=== PATIENT | female | born 2000 | race Caucasian/White ===

== ENCOUNTER 2024-01-12 21:43 | Day surgery (SDC) | payer SELFPAY ==
[2024-01-12] MEDS ORDERED: hydrALAZINE 20 MG/ML VIAL SLOW IVP PRN (22:18)
[2024-01-12 23:12] VITALS: BMI 31.3
== END 2024-01-13 02:20 | disposition home or self-care (01) ==
LOC: CSHERS 21:43 → CSHLD/OP 21:57
PROVIDERS: ATTEND Obstetrics & Gynecology
DX: O9A.213 Injury, poisoning and certain other consequences of external causes complicating pregnancy, third trimester (principal); O36.8130 Decreased fetal movements, third trimester, not applicable or unspecified; O09.33 Supervision of pregnancy with insufficient antenatal care, third trimester; O99.343 Other mental disorders complicating pregnancy, third trimester; F32.9 Major depressive disorder, single episode, unspecified; F41.9 Anxiety disorder, unspecified; O99.013 Anemia complicating pregnancy, third trimester; Z79.899 Other long term (current) drug therapy; Z90.89 Acquired absence of other organs; Z98.890 Other specified postprocedural states; Z88.0 Allergy status to penicillin; V43.52XA Car driver injured in collision with other type car in traffic accident, initial encounter
CPT/HCPCS: 76819

== ENCOUNTER 2024-02-25 23:53 | Day surgery (SDC) | payer OTHER ==
[2024-02-26 00:15] VITALS: BMI 33.8
[2024-02-26] MEDS ORDERED: hydrALAZINE 20 MG/ML VIAL SLOW IVP PRN (00:37)
[2024-02-26 00:56] LABS: Fetal Membranes Rupture No Membranes Rupture (No Rupture)
== END 2024-02-26 02:00 | disposition home or self-care (01) ==
LOC: CSHLD/OP 23:53
PROVIDERS: ATTEND Obstetrics & Gynecology
DX: Z03.71 Encounter for suspected problem with amniotic cavity and membrane ruled out (principal); O23.593 Infection of other part of genital tract in pregnancy, third trimester; N89.8 Other specified noninflammatory disorders of vagina; O99.013 Anemia complicating pregnancy, third trimester; D50.9 Iron deficiency anemia, unspecified; O09.893 Supervision of other high risk pregnancies, third trimester; Z3A.37 37 weeks gestation of pregnancy; Z88.0 Allergy status to penicillin
CPT/HCPCS: 84112; 87480; 87510; 87660; 99285

== ENCOUNTER 2024-03-02 18:24 | Inpatient (IN) | payer OTHER ==
[2024-03-02 18:46] VITALS: BMI 33.8
[2024-03-02] MEDS ORDERED: hydrALAZINE 20 MG/ML VIAL SLOW IVP PRN (19:19)
[2024-03-02 19:25] LABS: Fetal Membranes Rupture RUPTURE DETECTED (No Rupture)
[2024-03-02] MEDS ORDERED: Lidocaine 1% (PF) 30 ML VIAL SC PRN (19:27)
[2024-03-02] MEDS ORDERED: Promethazine HCl 25 MG/ML VIAL IM PRN (19:27)
[2024-03-02] MEDS ORDERED: Ondansetron PF 4 MG/2 ML Vial IVP PRN (19:27)
[2024-03-02] MEDS ORDERED: Tranexamic Acid 1,000 MG/10 ML VIAL IVP PRN (19:28)
[2024-03-02] MEDS ORDERED: Misoprostol 200 MCG TAB PR PRN (19:28)
[2024-03-02] MEDS ORDERED: Diphenoxylate HCl/Atropine Tablet PO PRN ×2 (19:28)
[2024-03-02] MEDS ORDERED: Carboprost 250 MCG/ML AMP IM PRN (19:28)
[2024-03-02] MEDS ORDERED: Methylergonovine 0.2 MG/ML VIAL IM PRN (19:28)
[2024-03-02] MEDS ORDERED: Misoprostol 100 MCG TAB VAG SCH (19:30)
[2024-03-02] MEDS ORDERED: Oxytocin 30 units/NS 500 ML 500 ML IV SCH (19:30)
[2024-03-02] MEDS: Oxytocin 30 units/NS 500 ML 500 ML IV SCH (20:53)
[2024-03-02 20:55] LABS: Hematocrit 34.3 % (34.9-44.5); Hemoglobin 11.3 g/dL (12.0-15.5); Mean Corpuscular HGB CONC 32.9 g/dL (32.0-36.0); Mean Corpuscular Hemoglobin 24.4 pg (27.0-33.0); Mean Corpuscular Volume 74.1 fL (81.6-98.3); Mean Platelet Volume 9.5 fL (7.4-10.4); Platelet Count 353 10x3/uL (150-450); RBC Distribution Width 22.5 % (11.5-14.5); Red Blood Cell (RBC) Count 4.63 10x6/uL (3.90-5.03); White Blood Cell (WBC) Count 11.9 10x3/uL (3.5-10.5)
[2024-03-02 21:01] LABS: ALT (SGPT) 57 U/L (8-55); AST (SGOT) 44 U/L (5-34); Albumin 2.6 g/dL (3.5-5.0); Alkaline Phosphatase 179 U/L (40-110); Anion Gap 17 mmol/L (10-20); BUN (Urea Nitrogen) 12 mg/dL (7.0-18.7); Bilirubin, Total 0.3 mg/dL (0.2-1.2); Calc. Creatinine Clearance 165 mL/min (70-130); Calcium 8.7 mg/dL (7.8-10.44); Carbon Dioxide 18 mmol/L (22-29); Chloride 107 mmol/L (98-107); Estimated GFR 123; Globulin 3.7 g/dL (2.4-3.5); Glucose 70 mg/dL (70-105); Protein, Total 6.3 g/dL (6.0-8.3); Sodium 138 mmol/L (136-145)
[2024-03-02 21:30] LABS: Syphilis Antibody Nonreactive (Nonreactive); Syphilis Antibody Index 0.91 S/CO (<1.00 Non-Reactive)
[2024-03-02 21:31] LABS: HBsAg Index 0.19 S/CO (0-0.99); Hep B Surf Ag - L&D Non-Reactive S/CO (NonReactive)
[2024-03-02 22:41] LABS: Amphetamine Not Detected (NotDetected); Barbiturates Screen Not Detected (NotDetected); Benzodiazepine Screen Not Detected (NotDetected); Cocaine Metabolite Screen Not Detected (NotDetected); Methadone Not Detected (NotDetected); Methamphetamine Not Detected (NotDetected); Opiate Screen Not Detected (NotDetected); Oxycodone Screen Not Detected (NotDetected); Phencyclidine (PCP) Not Detected (NotDetected); THC/Cannabinoid Screen Not Detected (NotDetected); Tricyclic Screen Not Detected (NotDetected)
[2024-03-02 22:59] LABS: Creatinine, Urine 108.74 mg/dL (47-110)
[2024-03-03] MEDS: fentaNYL/Ropivacaine Epidural 100 ML ONE (01:00)
[2024-03-03] MEDS ORDERED: Acetaminophen 325 MG TAB PO PRN (02:07)
[2024-03-03] MEDS ORDERED: Ondansetron PF 4 MG/2 ML Vial IVP PRN (02:07)
[2024-03-03] MEDS ORDERED: Naloxone HCl 0.4 mg/ml Vial IVP PRN ×2 (02:07)
[2024-03-03] MEDS ORDERED: Lactated Ringer's 500 ML IV PRN (02:07)
[2024-03-03] MEDS ORDERED: ePHEDrine Sulfate 50 MG/10 ML VIAL SLOW IVP PRN (02:07)
[2024-03-03] MEDS ORDERED: Moisturizing Cream (Eucerin) 113 GM JAR TOP PRN (02:07)
[2024-03-03] MEDS ORDERED: Promethazine HCl 25 MG/ML VIAL IM PRN (02:07)
[2024-03-03] MEDS ORDERED: fentaNYL 2 mcg/Ropivacaine 0.2% Epidural 100 ML CADD EPIDURAL SCH (02:15)
[2024-03-03] MEDS ORDERED: Communication Order-Pharmacy FS SCH (02:15)
[2024-03-03] MEDS: diphenhydrAMINE 50 MG/ML VIAL IVP PRN (04:11)
[2024-03-03] MEDS: Ibuprofen 800 MG TAB PO PRN (09:07)
[2024-03-03] MEDS: Guaifenesin DM 100-10/5 ML UDCUP PO SCH (09:43)
[2024-03-03 13:41] LABS: Influenza A by NAA Not Detected (NotDetected); Influenza B by NAA Not Detected (NotDetected); RSV by NAA Not Detected (NotDetected); SARS-CoV-2 NAA Rapid Test Not Detected (NotDetected)
[2024-03-03] MEDS: Dexmedetomidine 200 MCG/2 ML VIAL ONE (16:53)
[2024-03-03] MEDS: PHENYLEPHRINE-NS 100 MCG/ML 10 ML SYRINGE ONE (16:53)
[2024-03-03] MEDS: Acetaminophen 500 MG TAB PO PRN (17:11)
[2024-03-03] MEDS: Docusate 100 MG CAP PO PRN (21:13)
[2024-03-04] MEDS: Ibuprofen 800 MG TAB PO PRN (04:03)
[2024-03-04 04:09] VITALS: BP 121/72; TEMP 98.1
== END 2024-03-04 13:10 | disposition home or self-care (01) | DRG 806 ==
LOC: CSHLD/OP 18:24 → CSHLD 19:27 → CSHPP 03-03 08:18
PROVIDERS: ADMIT Obstetrics & Gynecology; ATTEND Obstetrics & Gynecology
PROC: 10E0XZZ Delivery of Products of Conception, External Approach (ICD-10-PCS; principal; 2024-03-03)
PROC: 0HQ9XZZ Repair Perineum Skin, External Approach (ICD-10-PCS; 2024-03-03)
DX: O42.02 Full-term premature rupture of membranes, onset of labor within 24 hours of rupture (principal); O98.52 Other viral diseases complicating childbirth; Z37.0 Single live birth; Z3A.38 38 weeks gestation of pregnancy; O70.0 First degree perineal laceration during delivery; O99.02 Anemia complicating childbirth; Z90.89 Acquired absence of other organs; Z88.0 Allergy status to penicillin; O99.892 Other specified diseases and conditions complicating childbirth; R05.9 Cough, unspecified; B34.9 Viral infection, unspecified
CPT/HCPCS: 0241U; 36415; 51702; 71045; 80053; 80306; 82570; 84112; 84145; 84156; 85027; 86780; 86850; 86900; 86901; 87340; 99285; J1200; J2590

== ENCOUNTER 2024-03-07 22:12 | Inpatient (IN) | payer OTHER ==
[2024-03-07 22:28] VITALS: BMI 28.3
[2024-03-07] MEDS: Magnesium Sulfate 20 gm/500 ml 20 GM/500 ML BAG IVPB SCH (22:35)
[2024-03-07] MEDS ORDERED: hydrALAZINE 20 MG/ML VIAL SLOW IVP PRN (23:04)
[2024-03-07] MEDS ORDERED: Lorazepam 2 MG/ML VIAL SLOW IVP PRN (23:04)
[2024-03-07] MEDS ORDERED: Calcium Gluc 4.6 MEQ/10 ML (100 MG/ML) SLOW IVP PRN (23:04)
[2024-03-07] MEDS ORDERED: Promethazine HCl 25 MG/ML VIAL IM PRN (23:04)
[2024-03-07] MEDS: Magnesium Sulfate 20 gm/500 ml 20 GM/500 ML BAG ONE (23:34)
[2024-03-08] MEDS: diphenhydrAMINE 25 MG CAP PO PRN
[2024-03-08] MEDS: Ondansetron PF 4 MG/2 ML Vial IVP PRN
[2024-03-08] MEDS: Ampicillin/Sulbactam 3 GM in Sodium Chloride 0.9% 100 ML IVPB SCH (00:12)
[2024-03-08 04:35] LABS: #Basophils 0.02 10x3/uL (0.0-0.2); #Monocytes 0.87 10x3/uL (0.0-1.1); #Neutrophils 6.15 10x3/uL (1.5-8.4); %Basophils 0.2 % (0.0-2.0); %Eosinophils 1.2 % (0.0-6.0); %Lymphocytes 16.3 % (18.0-47.0); %Monocytes 10.1 % (0.0-10.0); Hematocrit 29.4 % (34.9-44.5); Mean Corpuscular HGB CONC 30.6 g/dL (32.0-36.0); Mean Corpuscular Hemoglobin 23.3 pg (27.0-33.0); Mean Platelet Volume 8.5 fL (7.4-10.4); Platelet Count 313 10x3/uL (150-450); RBC Distribution Width 22.4 % (11.5-14.5); Red Blood Cell (RBC) Count 3.87 10x6/uL (3.90-5.03); White Blood Cell (WBC) Count 8.7 10x3/uL (3.5-10.5)
[2024-03-08 04:44] LABS: ALT (SGPT) 22 U/L (8-55); AST (SGOT) 15 U/L (5-34); Albumin 2.3 g/dL (3.5-5.0); Alkaline Phosphatase 85 U/L (40-110); Anion Gap 14 mmol/L (10-20); BUN (Urea Nitrogen) 7 mg/dL (7.0-18.7); Bilirubin, Total 0.2 mg/dL (0.2-1.2); Calc. Creatinine Clearance 144 mL/min (70-130); Calcium 7.7 mg/dL (7.8-10.44); Carbon Dioxide 22 mmol/L (22-29); Chloride 107 mmol/L (98-107); Estimated GFR 126; Globulin 3.7 g/dL (2.4-3.5); Glucose 98 mg/dL (70-105); Potassium 3.7 mmol/L (3.5-5.1); Sodium 139 mmol/L (136-145)
[2024-03-08] MEDS: Ferrous Sulfate 325 MG TAB PO SCH (09:43)
[2024-03-08] MEDS: Acetaminophen 500 MG TAB PO SCH (11:52)
[2024-03-08] MEDS: Acetaminophen 325 MG TAB PO PRN (18:50)
[2024-03-09] MEDS: Amoxicillin/Potassium Clav 500 MG TAB PO SCH (09:56)
[2024-03-09] MEDS: Docusate 100 MG CAP PO PRN (09:57)
[2024-03-09] MEDS: NIFEdipine XL 30 MG ER.TAB PO SCH (17:30)
[2024-03-10] MEDS: NIFEdipine XL 30 MG ER.TAB PO SCH (10:13)
[2024-03-10 10:14] VITALS: BP 124/82
[2024-03-10 10:17] VITALS: TEMP 98.6
== END 2024-03-10 13:49 | disposition home or self-care (01) | DRG 776 ==
LOC: CSHLD 22:12 → CSHPED 03-08 15:44
PROVIDERS: ADMIT Obstetrics & Gynecology; ATTEND Obstetrics & Gynecology
DX: O86.12 Endometritis following delivery (principal); O14.15 Severe pre-eclampsia, complicating the puerperium; Z88.0 Allergy status to penicillin; Z79.899 Other long term (current) drug therapy; Z79.1 Long term (current) use of non-steroidal anti-inflammatories (NSAID)
CPT/HCPCS: 36415; 80053; 85025; 99285; J0295; J2405; J3475